=== PATIENT | female | born 1975 | race Two or more races ===

== ENCOUNTER 2023-02-08 17:38 | Inpatient (IN) | payer MEDICAID, OTHER ==
[~2023-02-08] VITALS: Ht 170.2 cm; Wt 185.0 kg
[2023-02-08 18:28] LABS: Albumin 2.6 g/dL (3.4-5.0); Calcium 8.2 mg/dL (8.5-10.1); Potassium 4.4 mmol/L (3.5-5.1)
[2023-02-08 18:30] LABS: BUN/Creatinine Ratio 12.3 (10.0-20.0); Bilirubin, Total 0.8 mg/dL (0.2-1.0)
[2023-02-08 19:00] LABS: Basophils # (auto) 0.1 10 ^3/uL (0-0.2); Mean Corpuscular Volume 80.8 fL (80.0-100.0); Nucleated Red Blood Cells % 0.1 %; White Blood Cell 20.1 10^3/uL (4.4-10.8)
[2023-02-08 19:02] LABS: Basophils % (auto) 0.3 % (0.0-2.0); Eosinophils # (auto) 0 10 ^3/uL (0-0.8); Eosinophils % (auto) 0.1 % (0.0-7.0); Hematocrit 32.8 % (36.0-46.0); Hemoglobin 11.1 g/dL (12.2-16.2); Lymphocytes % (auto) 4.8 % (10.0-50.0); Mean Corpuscular Hemoglobin 27.4 pg (28.0-32.0); Mean Corpuscular Hgb Conc. 33.8 g/dL (32.0-36.0); Monocytes # (auto) 1.4 10 ^3/uL (0-1.3); Monocytes % (auto) 6.8 % (0.0-12.0); Neutrophils # (auto) 17.7 10 ^3/uL (1.6-8.6); Red Blood Cells 4.06 10^6/uL (4.0-5.20); Red Cell Distribution Width 15.8 % (11.8-14.3)
[2023-02-08] MEDS ORDERED: PIPERACILLIN-TAZOB 3.375GM 100 ML IV ONE (19:15)
[2023-02-08] MEDS ORDERED: IPRATROPIUM BROM 0.5 MG/2.5ML INH SOL NEB ONE (19:15)
[2023-02-08] MEDS ORDERED: BUDESONIDE (INHALATION) 0.5 MG/2 ML NEB NEB ONE (19:15)
[2023-02-08] MEDS ORDERED: ALBUTEROL SULF 2.5 MG/0.5ML(0.5%) NEB SOLN NEB ONE (19:15)
[2023-02-08] MEDS ORDERED: dilTIAZem 25 MG/5 ML VIAL IV ONE (19:45)
[2023-02-08] MEDS ORDERED: ONDANSETRON HCL 4 MG/2 ML VIAL IV ONE (22:00)
[2023-02-08] MEDS ORDERED: IOHEXOL 350 MG/ML 100ML IJ ONE (22:24)
[2023-02-08] MEDS: ACETAMINOPHEN 325 MG TAB PO ONE ×2 (22:30→23:11)
[2023-02-08] MEDS ORDERED: DEXTROSE (50%) 50ML SYRG IV PRN (23:30)
[2023-02-08] MEDS ORDERED: MORPHINE SULFATE INJ 2 MG/ml SYRG IV PRN (23:30)
[2023-02-08] MEDS ORDERED: ONDANSETRON HCL 4 MG/2 ML VIAL IV PRN (23:30)
[2023-02-08] MEDS ORDERED: NITROGLYCERIN 0.4 MG SL TAB SL PRN (23:30)
[2023-02-08] MEDS ORDERED: DOCUSATE SOD 100 MG CAP PO PRN (23:30)
[2023-02-08] MEDS: METOCLOPRAMIDE HCL 5MG/ml INJ 2ml VIAL IV PRN (23:35)
[2023-02-08] MEDS ORDERED: FUROSEMIDE 40 MG/4 ML VIAL IV ONE (23:45)
[2023-02-09] MEDS: InsuLIN REG 1unit/0.01ml Soln (100units/ml) SC SCH ×5 (00:45→23:03)
[2023-02-09] MEDS ORDERED: AZITHROMYCIN 500MG/ 250ML 250 ML IV ONE (00:45)
[2023-02-09] MEDS ORDERED: InsuLIN REG 1unit/0.01ml Soln (100units/ml) ONE (00:56)
[2023-02-09] MEDS: ACETAMINOPHEN 325 MG TAB PO PRN (01:21)
[2023-02-09 01:22] VITALS: BP 121/67
[2023-02-09] MEDS: ALBUTEROL SULF 2.5 MG/0.5ML(0.5%) NEB SOLN NEB PRN (03:17)
[2023-02-09] MEDS: IPRATROPIUM BROM 0.5 MG/2.5ML INH SOL NEB PRN (03:17)
[2023-02-09 05:20] LABS: Potassium 4.1 mmol/L (3.5-5.1)
[2023-02-09 05:26] LABS: Albumin 2.5 g/dL (3.4-5.0); BUN/Creatinine Ratio 12.8 (10.0-20.0); Bilirubin, Total 0.9 mg/dL (0.2-1.0); Calcium 8.3 mg/dL (8.5-10.1); Total Protein 6.9 g/dL (6.4-8.2)
[2023-02-09 05:28] LABS: Basophils # (auto) 0.1 10 ^3/uL (0-0.2); Basophils % (auto) 0.6 % (0.0-2.0); Eosinophils # (auto) 0 10 ^3/uL (0-0.8); Hematocrit 31.2 % (36.0-46.0); Hemoglobin 10.6 g/dL (12.2-16.2); Lymphocytes # (auto) 1.3 10 ^3/uL (0.4-5.4); Lymphocytes % (auto) 5.7 % (10.0-50.0); Mean Corpuscular Hemoglobin 27.6 pg (28.0-32.0); Mean Corpuscular Hgb Conc. 33.9 g/dL (32.0-36.0); Mean Corpuscular Volume 81.3 fL (80.0-100.0); Monocytes # (auto) 1.5 10 ^3/uL (0-1.3); Monocytes % (auto) 6.3 % (0.0-12.0); Neutrophils # (auto) 20.3 10 ^3/uL (1.6-8.6); Neutrophils % (auto) 87.4 % (37.0-80.0); Red Blood Cells 3.84 10^6/uL (4.0-5.20); White Blood Cell 23.2 10^3/uL (4.4-10.8)
[2023-02-09] MEDS: SODIUM CHLOR 0.9% PF (SALINE LOCK) 10ML VIAL/SYR IV SCH ×3 (05:34→22:27)
[2023-02-09] MEDS ORDERED: methylPREDNISolone SOD SUCC 125 MG/2 ML VL IV SCH (06:00)
[2023-02-09 06:30] LABS: Urine Bacteria NONE SEEN /hpf (None Seen); Urine Blood 2+ /uL (Negative); Urine Specific Gravity 1.006 (1.001-1.035); Urine WBC 1 /hpf (0 - 5)
[2023-02-09] MEDS: ACCU-CHEK COMFORT CURVE STRIP VI SCH ×4 (06:39→22:27)
[2023-02-09] MEDS: LEVOTHYROXINE SODIUM 50 MCG TAB PO SCH (06:40)
[2023-02-09] MEDS: cefTRIAXone 1GM/50ML D5W 50 ML IV SCH (09:12)
[2023-02-09] MEDS: ASPirin 81 mg TAB PO SCH (09:22)
[2023-02-09] MEDS: FAMOTIDINE (10MG/ML) 2ML VL IV SCH ×2 (09:22→22:27)
[2023-02-09] MEDS: AZITHROMYCIN 500MG/ 250ML 250 ML IV SCH (09:23)
[2023-02-09] MEDS: FUROSEMIDE 40 MG/4 ML VIAL IV SCH (09:23)
[2023-02-09] MEDS ORDERED: ENOXAPARIN SOD 40 MG/0.4 ML SYRINGE SC SCH (10:00)
[2023-02-09] MEDS ORDERED: HEPARIN DRIP/D5W 100UNITS/ML 250 ML IV SCH (13:30)
[2023-02-09] MEDS ORDERED: HEPARIN SODIUM (PORCINE) 5000 UNITS/ML 1ML VIAL IV ONE (13:30)
[2023-02-09] MEDS: METOCLOPRAMIDE HCL 5MG/ml INJ 2ml VIAL IV PRN ×2 (13:50→20:27)
[2023-02-09 14:04] LABS: Basophils # (auto) 0.1 10 ^3/uL (0-0.2); Basophils % (auto) 0.4 % (0.0-2.0); Eosinophils # (auto) 0 10 ^3/uL (0-0.8); Eosinophils % (auto) 0.2 % (0.0-7.0); Hematocrit 30.8 % (36.0-46.0); Hemoglobin 10.3 g/dL (12.2-16.2); Lymphocytes # (auto) 1.1 10 ^3/uL (0.4-5.4); Lymphocytes % (auto) 5.4 % (10.0-50.0); Mean Corpuscular Hemoglobin 27.2 pg (28.0-32.0); Mean Corpuscular Hgb Conc. 33.5 g/dL (32.0-36.0); Mean Corpuscular Volume 81.3 fL (80.0-100.0); Monocytes # (auto) 1.3 10 ^3/uL (0-1.3); Monocytes % (auto) 6.5 % (0.0-12.0); Neutrophils # (auto) 18.1 10 ^3/uL (1.6-8.6); Neutrophils % (auto) 87.5 % (37.0-80.0); Nucleated Red Blood Cells % 0.1 %; Red Blood Cells 3.78 10^6/uL (4.0-5.20); Red Cell Distribution Width 15.9 % (11.8-14.3); White Blood Cell 20.7 10^3/uL (4.4-10.8)
[2023-02-09 14:17] LABS: INR 1.03 (0.9-1.15); Partial Thromboplastin Time 29.1 sec (24.6-33.4)
[2023-02-09] MEDS ORDERED: DULoxetine HCL 30 MG CAP PO ONE (14:30)
[2023-02-09] MEDS: methylPREDNISolone SOD SUCC 40 MG/ML VL IV SCH ×2 (14:57→22:27)
[2023-02-09] MEDS: HYDROcodone-ACET 5/325MG TAB PO PRN (20:27)
[2023-02-09 21:31] LABS: INR 1.01 (0.9-1.15)
[2023-02-09 22:00] VITALS: BP 124/62
[2023-02-09] MEDS: DULoxetine HCL 30 MG CAP PO SCH (22:26)
[2023-02-09] MEDS ORDERED: HEPARIN SODIUM (PORCINE) 5000 UNITS/ML 1ML VIAL IV NR (22:45)
[2023-02-09] MEDS ORDERED: ALPR0.255 PO (23:46)
[2023-02-09] MEDS ORDERED: LOSA100T58 PO (23:46)
[2023-02-09] MEDS ORDERED: LIDO5CRE14 EX (23:46)
[2023-02-09] MEDS ORDERED: CYCL-839 PO (23:46)
[2023-02-09] MEDS ORDERED: ADAL40IN2 SC (23:46)
[2023-02-09] MEDS ORDERED: ERGO1CAP12 PO (23:46)
[2023-02-09] MEDS ORDERED: TIOT17SP INH (23:46)
[2023-02-09] MEDS ORDERED: ONDA-188 PO (23:46)
[2023-02-09] MEDS ORDERED: TIZA-326 PO (23:46)
[2023-02-09] MEDS ORDERED: MOME1AER3 (23:46)
[2023-02-09] MEDS ORDERED: ALBUAER3 IN (23:46)
[2023-02-09] MEDS ORDERED: VITA-55 PO (23:46)
[2023-02-09] MEDS ORDERED: OXCA600T3 PO (23:46)
[2023-02-09] MEDS ORDERED: DULO1CAP6 PO (23:46)
[2023-02-09] MEDS ORDERED: LEVO150T10 PO (23:46)
[2023-02-09] MEDS ORDERED: CELE1CAP6 PO (23:46)
[2023-02-09] MEDS ORDERED: LOPE2CAP PO (23:46)
[2023-02-09] MEDS ORDERED: OMEP-448 PO (23:46)
[2023-02-09] MEDS ORDERED: ATOR20TA50 PO (23:46)
[2023-02-09] MEDS ORDERED: AMLO1TAB23 PO (23:46)
[2023-02-09] MEDS ORDERED: INSUINJ18 SC (23:46)
[2023-02-09] MEDS ORDERED: TOPI100T68 PO (23:46)
[2023-02-09] MEDS ORDERED: INSU100I28 IJ (23:46)
[2023-02-09] MEDS ORDERED: TIZA-142 PO (23:46)
[2023-02-10 05:00] VITALS: BP 112/57
[2023-02-10] MEDS: SODIUM CHLOR 0.9% PF (SALINE LOCK) 10ML VIAL/SYR IV SCH ×3 (05:07→21:28)
[2023-02-10] MEDS: HYDROcodone-ACET 5/325MG TAB PO PRN (05:08)
[2023-02-10] MEDS: methylPREDNISolone SOD SUCC 40 MG/ML VL IV SCH ×3 (05:08→21:27)
[2023-02-10 05:59] LABS: BUN/Creatinine Ratio 18.6 (10.0-20.0); Calcium 8.8 mg/dL (8.5-10.1); Magnesium 2.3 mg/dL (1.6-2.6); Potassium 4.3 mmol/L (3.5-5.1)
[2023-02-10] MEDS: LEVOTHYROXINE SODIUM 50 MCG TAB PO SCH (06:01)
[2023-02-10] MEDS: ACCU-CHEK COMFORT CURVE STRIP VI SCH ×4 (06:02→22:05)
[2023-02-10] MEDS: InsuLIN REG 1unit/0.01ml Soln (100units/ml) SC SCH ×4 (06:07→22:19)
[2023-02-10 06:14] LABS: Basophils # (auto) 0.1 10 ^3/uL (0-0.2); Basophils % (auto) 0.4 % (0.0-2.0); Eosinophils # (auto) 0 10 ^3/uL (0-0.8); Eosinophils % (auto) 0.1 % (0.0-7.0); Hematocrit 30.5 % (36.0-46.0); Hemoglobin 10.4 g/dL (12.2-16.2); Lymphocytes % (auto) 5.1 % (10.0-50.0); Mean Corpuscular Hemoglobin 27.9 pg (28.0-32.0); Mean Corpuscular Hgb Conc. 34.2 g/dL (32.0-36.0); Mean Corpuscular Volume 81.5 fL (80.0-100.0); Monocytes # (auto) 0.8 10 ^3/uL (0-1.3); Monocytes % (auto) 3.9 % (0.0-12.0); Neutrophils # (auto) 18.5 10 ^3/uL (1.6-8.6); Neutrophils % (auto) 90.5 % (37.0-80.0); Nucleated Red Blood Cells % 0.1 %; Red Blood Cells 3.74 10^6/uL (4.0-5.20); White Blood Cell 20.4 10^3/uL (4.4-10.8)
[2023-02-10 06:20] LABS: INR 0.98 (0.9-1.15); Partial Thromboplastin Time 28.8 sec (24.6-33.4)
[2023-02-10] MEDS ORDERED: HEPARIN SODIUM (PORCINE) 5000 UNITS/ML 1ML VIAL IV NR ×2 (06:30→22:00)
[2023-02-10] MEDS ORDERED: HEPARIN DRIP/D5W 100UNITS/ML 250 ML IV SCH (06:30)
[2023-02-10] MEDS ORDERED: HEPARIN SODIUM (PORCINE) 5000 UNITS/ML 1ML VIAL IV ONE ×2 (06:45→13:30)
[2023-02-10 09:33] VITALS: BP 123/54
[2023-02-10] MEDS ORDERED: OPTISON 3ml Vial for INJ IV ONE (10:03)
[2023-02-10] MEDS: cefTRIAXone 1GM/50ML D5W 50 ML IV SCH (10:43)
[2023-02-10] MEDS: FUROSEMIDE 40 MG/4 ML VIAL IV SCH (10:54)
[2023-02-10] MEDS: DULoxetine HCL 30 MG CAP PO SCH ×2 (10:57→21:28)
[2023-02-10] MEDS: FAMOTIDINE (10MG/ML) 2ML VL IV SCH ×2 (10:57→21:28)
[2023-02-10] MEDS: ASPirin 81 mg TAB PO SCH (10:57)
[2023-02-10] MEDS: AZITHROMYCIN 500MG/ 250ML 250 ML IV SCH (11:51)
[2023-02-10] MEDS: ALBUTEROL SULF 2.5 MG/0.5ML(0.5%) NEB SOLN NEB PRN (12:38)
[2023-02-10] MEDS: IPRATROPIUM BROM 0.5 MG/2.5ML INH SOL NEB PRN (12:38)
[2023-02-10 12:52] VITALS: BP 139/53
[2023-02-10 13:11] LABS: INR 0.97 (0.9-1.15); Partial Thromboplastin Time 24.6 sec (24.6-33.4)
[2023-02-10] MEDS ORDERED: ALPRAZolam 0.5 MG TAB PO PRN (13:15)
[2023-02-10] MEDS: HEPARIN DRIP/D5W 100UNITS/ML 250 ML IV SCH (14:24)
[2023-02-10 16:53] VITALS: BP 142/74
[2023-02-10] MEDS: ATORVASTATIN 20 MG TAB PO SCH (21:28)
[2023-02-10 21:38] LABS: INR 0.97 (0.9-1.15); Partial Thromboplastin Time < 20.0 sec (24.6-33.4)
[2023-02-10 22:00] VITALS: BP 144/67
[2023-02-11] VITALS (7 sets, daily range): BP systolic 118–139; BP diastolic 52–80
[2023-02-11] MEDS: HYDROcodone-ACET 5/325MG TAB PO PRN ×2 (00:57→11:29)
[2023-02-11] MEDS: HEPARIN DRIP/D5W 100UNITS/ML 250 ML IV SCH (02:57)
[2023-02-11] MEDS: SODIUM CHLOR 0.9% PF (SALINE LOCK) 10ML VIAL/SYR IV SCH ×3 (05:26→21:52)
[2023-02-11] MEDS: methylPREDNISolone SOD SUCC 40 MG/ML VL IV SCH ×3 (05:27→21:52)
[2023-02-11] MEDS: ACCU-CHEK COMFORT CURVE STRIP VI SCH ×4 (06:11→21:57)
[2023-02-11] MEDS: LEVOTHYROXINE SODIUM 50 MCG TAB PO SCH (06:11)
[2023-02-11] MEDS: InsuLIN REG 1unit/0.01ml Soln (100units/ml) SC SCH ×4 (06:18→21:59)
[2023-02-11 06:30] LABS: INR 0.98 (0.9-1.15); Partial Thromboplastin Time 34.4 sec (24.6-33.4)
[2023-02-11 06:35] LABS: Potassium 4.3 mmol/L (3.5-5.1)
[2023-02-11 06:37] LABS: Hematocrit 31.2 % (36.0-46.0); Hemoglobin 10.4 g/dL (12.2-16.2); Mean Corpuscular Hemoglobin 27.2 pg (28.0-32.0); Mean Corpuscular Hgb Conc. 33.2 g/dL (32.0-36.0); Mean Corpuscular Volume 81.9 fL (80.0-100.0); Red Blood Cells 3.81 10^6/uL (4.0-5.20); Red Cell Distribution Width 15.9 % (11.8-14.3); White Blood Cell 21.5 10^3/uL (4.4-10.8)
[2023-02-11 06:39] LABS: Basophils % (manual) 0 (0.0-2.0); Blast Cells 0; Eosinophils % (manual) 0 (0-7); Metamyelocytes % 0; Myelocytes % 0; Promyelocytes % 0; Reactive Lymphocytes 0
[2023-02-11] MEDS ORDERED: HEPARIN DRIP/D5W 100UNITS/ML 250 ML IV SCH (07:00)
[2023-02-11] MEDS ORDERED: HEPARIN SODIUM (PORCINE) 5000 UNITS/ML 1ML VIAL IV ONE (07:15)
[2023-02-11 07:29] LABS: Band Neutrophils % (manual) 7; Lymphocytes % (manual) 8 (10.0-50.0); Monocytes % (manual) 6 (0-12)
[2023-02-11] MEDS ORDERED: INSULIN 70/30 1unit/0.01ml Susp (100units/ml) SC ONE ×2 (08:45→09:12)
[2023-02-11] MEDS: cefTRIAXone 1GM/50ML D5W 50 ML IV SCH (09:34)
[2023-02-11] MEDS: DULoxetine HCL 30 MG CAP PO SCH ×2 (09:34→21:52)
[2023-02-11] MEDS: ASPirin 81 mg TAB PO SCH (09:34)
[2023-02-11] MEDS: FAMOTIDINE (10MG/ML) 2ML VL IV SCH (09:34)
[2023-02-11] MEDS: FUROSEMIDE 40 MG/4 ML VIAL IV SCH (09:35)
[2023-02-11] MEDS: CLOPIDOGREL BISULFATE 75 MG TAB PO SCH (09:45)
[2023-02-11] MEDS: AZITHROMYCIN 500MG/ 250ML 250 ML IV SCH (11:10)
[2023-02-11] MEDS: ATORVASTATIN 20 MG TAB PO SCH (21:52)
[2023-02-11] MEDS ORDERED: INSULIN 70/30 1unit/0.01ml Susp (100units/ml) SC SCH ×2 (22:00)
[2023-02-11] MEDS: ACETAMINOPHEN 325 MG TAB PO PRN (22:06)
[2023-02-12 05:00] VITALS: BP 124/64
[2023-02-12] MEDS: methylPREDNISolone SOD SUCC 40 MG/ML VL IV SCH ×3 (05:42→21:36)
[2023-02-12] MEDS: LEVOTHYROXINE SODIUM 50 MCG TAB PO SCH (05:42)
[2023-02-12] MEDS: SODIUM CHLOR 0.9% PF (SALINE LOCK) 10ML VIAL/SYR IV SCH ×3 (05:42→21:36)
[2023-02-12] MEDS: ACCU-CHEK COMFORT CURVE STRIP VI SCH ×4 (06:16→21:39)
[2023-02-12] MEDS: InsuLIN REG 1unit/0.01ml Soln (100units/ml) SC SCH ×4 (06:18→21:44)
[2023-02-12 09:00] VITALS: BP 137/67
[2023-02-12] MEDS: cefTRIAXone 1GM/50ML D5W 50 ML IV SCH (09:40)
[2023-02-12] MEDS: CLOPIDOGREL BISULFATE 75 MG TAB PO SCH (09:40)
[2023-02-12] MEDS: ASPirin 81 mg TAB PO SCH (09:40)
[2023-02-12] MEDS: DULoxetine HCL 30 MG CAP PO SCH ×2 (09:40→21:36)
[2023-02-12] MEDS: FUROSEMIDE 40 MG/4 ML VIAL IV SCH (09:41)
[2023-02-12] MEDS ORDERED: INSULIN 70/30 1unit/0.01ml Susp (100units/ml) SC ONE (12:00)
[2023-02-12] MEDS: AZITHROMYCIN 500MG/ 250ML 250 ML IV SCH (12:02)
[2023-02-12 13:00] VITALS: BP 132/72
[2023-02-12 16:45] VITALS: BP 125/62
[2023-02-12] MEDS: ATORVASTATIN 20 MG TAB PO SCH (21:36)
[2023-02-12] MEDS: INSULIN 70/30 1unit/0.01ml Susp (100units/ml) SC SCH (21:40)
[2023-02-12 22:00] VITALS: BP 133/64
[2023-02-13] MEDS ORDERED: DEXTROSE (50%) 50ML SYRG IV PRN (00:30)
[2023-02-13 05:00] VITALS: BP 132/59
[2023-02-13] MEDS: SODIUM CHLOR 0.9% PF (SALINE LOCK) 10ML VIAL/SYR IV SCH ×3 (05:40→22:22)
[2023-02-13] MEDS: LEVOTHYROXINE SODIUM 50 MCG TAB PO SCH (05:41)
[2023-02-13] MEDS: methylPREDNISolone SOD SUCC 40 MG/ML VL IV SCH ×2 (05:41→22:15)
[2023-02-13] MEDS: ACCU-CHEK COMFORT CURVE STRIP VI SCH ×3 (05:42→17:42)
[2023-02-13] MEDS: InsuLIN REG 1unit/0.01ml Soln (100units/ml) SC SCH ×4 (05:48→23:59)
[2023-02-13 06:31] LABS: Hematocrit 34.9 % (36.0-46.0); Hemoglobin 11.7 g/dL (12.2-16.2); Mean Corpuscular Hemoglobin 27.1 pg (28.0-32.0); Mean Corpuscular Hgb Conc. 33.4 g/dL (32.0-36.0); Red Blood Cells 4.32 10^6/uL (4.0-5.20); Red Cell Distribution Width 15.5 % (11.8-14.3); White Blood Cell 19.3 10^3/uL (4.4-10.8)
[2023-02-13 06:41] LABS: Band Neutrophils % (manual) 0; Basophils % (manual) 0 (0.0-2.0); Blast Cells 0; Eosinophils % (manual) 0 (0-7); Metamyelocytes % 0; Myelocytes % 0; Promyelocytes % 0; Reactive Lymphocytes 0
[2023-02-13 06:42] LABS: BUN/Creatinine Ratio 27.5 (10.0-20.0); Calcium 8.8 mg/dL (8.5-10.1); Magnesium 2.5 mg/dL (1.6-2.6); Potassium 4.1 mmol/L (3.5-5.1)
[2023-02-13 09:00] VITALS: BP 146/87
[2023-02-13 09:02] LABS: Lymphocytes % (manual) 24 (10.0-50.0); Monocytes % (manual) 9 (0-12)
[2023-02-13] MEDS: cefTRIAXone 1GM/50ML D5W 50 ML IV SCH (11:07)
[2023-02-13] MEDS: CLOPIDOGREL BISULFATE 75 MG TAB PO SCH (11:08)
[2023-02-13] MEDS: DULoxetine HCL 30 MG CAP PO SCH ×2 (11:08→22:15)
[2023-02-13] MEDS: FUROSEMIDE 40 MG/4 ML VIAL IV SCH (11:08)
[2023-02-13] MEDS: ASPirin 81 mg TAB PO SCH (11:08)
[2023-02-13] MEDS: AZITHROMYCIN 500MG/ 250ML 250 ML IV SCH (12:11)
[2023-02-13] MEDS: INSULIN 70/30 1unit/0.01ml Susp (100units/ml) SC SCH ×2 (12:17→22:14)
[2023-02-13 13:00] VITALS: BP 148/91
[2023-02-13 16:51] VITALS: BP 138/55
[2023-02-13 20:00] VITALS: BP 130/69
[2023-02-13 22:00] VITALS: BP 143/53
[2023-02-13] MEDS: ATORVASTATIN 20 MG TAB PO SCH (22:15)
[2023-02-13] MEDS: ACETAMINOPHEN 325 MG TAB PO PRN (22:22)
[2023-02-13] MEDS: IPRATROPIUM BROM 0.5 MG/2.5ML INH SOL NEB PRN (22:34)
[2023-02-13] MEDS: ALBUTEROL SULF 2.5 MG/0.5ML(0.5%) NEB SOLN NEB PRN (22:34)
[2023-02-14 05:00] VITALS: BP 135/82
[2023-02-14] MEDS: LEVOTHYROXINE SODIUM 50 MCG TAB PO SCH (06:47)
[2023-02-14] MEDS: SODIUM CHLOR 0.9% PF (SALINE LOCK) 10ML VIAL/SYR IV SCH ×3 (06:48→21:47)
[2023-02-14] MEDS: ACCU-CHEK COMFORT CURVE STRIP VI SCH ×4 (06:48→18:00)
[2023-02-14] MEDS: InsuLIN REG 1unit/0.01ml Soln (100units/ml) SC SCH ×3 (06:51→18:50)
[2023-02-14 07:30] VITALS: BP 128/69
[2023-02-14 09:00] VITALS: BP 128/69
[2023-02-14] MEDS: DULoxetine HCL 30 MG CAP PO SCH ×2 (10:08→21:41)
[2023-02-14] MEDS: methylPREDNISolone SOD SUCC 40 MG/ML VL IV SCH ×2 (10:08→21:41)
[2023-02-14] MEDS: ASPirin 81 mg TAB PO SCH (10:08)
[2023-02-14] MEDS: CLOPIDOGREL BISULFATE 75 MG TAB PO SCH (10:08)
[2023-02-14] MEDS: cefTRIAXone 1GM/50ML D5W 50 ML IV SCH (10:08)
[2023-02-14] MEDS: FUROSEMIDE 40 MG/4 ML VIAL IV SCH (10:09)
[2023-02-14] MEDS: ACETAMINOPHEN 325 MG TAB PO PRN (10:32)
[2023-02-14] MEDS: INSULIN 70/30 1unit/0.01ml Susp (100units/ml) SC SCH ×2 (10:32→22:05)
[2023-02-14] MEDS: AZITHROMYCIN 500MG/ 250ML 250 ML IV SCH (10:40)
[2023-02-14 13:00] VITALS: BP 145/77
[2023-02-14] MEDS: METOCLOPRAMIDE HCL 5MG/ml INJ 2ml VIAL IV PRN ×2 (15:18→21:42)
[2023-02-14 16:55] VITALS: BP 139/78
[2023-02-14 20:00] VITALS: BP 135/84
[2023-02-14] MEDS: ATORVASTATIN 20 MG TAB PO SCH (21:41)
[2023-02-15 02:46] VITALS: BP 139/78
[2023-02-15 05:00] VITALS: BP 115/75
[2023-02-15] MEDS: InsuLIN REG 1unit/0.01ml Soln (100units/ml) SC SCH ×3 (06:00→13:35)
[2023-02-15] MEDS: ACCU-CHEK COMFORT CURVE STRIP VI SCH ×3 (06:13→13:31)
[2023-02-15] MEDS: LEVOTHYROXINE SODIUM 50 MCG TAB PO SCH (06:14)
[2023-02-15] MEDS: SODIUM CHLOR 0.9% PF (SALINE LOCK) 10ML VIAL/SYR IV SCH ×2 (06:14→14:00)
[2023-02-15 06:35] LABS: BUN/Creatinine Ratio 25.6 (10.0-20.0); Calcium 8.7 mg/dL (8.5-10.1); Potassium 3.9 mmol/L (3.5-5.1)
[2023-02-15] MEDS: METOCLOPRAMIDE HCL 5MG/ml INJ 2ml VIAL IV PRN (09:41)
[2023-02-15] MEDS ORDERED: METH4PAK PO (10:13)
[2023-02-15] MEDS ORDERED: LEVO500T91 PO (10:13)
[2023-02-15] MEDS: DULoxetine HCL 30 MG CAP PO SCH (11:10)
[2023-02-15] MEDS: ASPirin 81 mg TAB PO SCH (11:10)
[2023-02-15] MEDS: cefTRIAXone 1GM/50ML D5W 50 ML IV SCH (11:10)
[2023-02-15] MEDS: CLOPIDOGREL BISULFATE 75 MG TAB PO SCH (11:10)
[2023-02-15] MEDS: methylPREDNISolone SOD SUCC 40 MG/ML VL IV SCH (11:10)
[2023-02-15] MEDS: FUROSEMIDE 40 MG/4 ML VIAL IV SCH (11:12)
[2023-02-15] MEDS: INSULIN 70/30 1unit/0.01ml Susp (100units/ml) SC SCH (11:13)
[2023-02-15] MEDS: AZITHROMYCIN 500MG/ 250ML 250 ML IV SCH (11:30)
[2023-02-15 12:21] VITALS: BP 126/55
[2023-02-15 13:00] VITALS: BP 133/68
[2023-02-15 17:00] VITALS: BP 148/76
== END 2023-02-15 16:42 | disposition home or self-care (01) | DRG 139 ==
LOC: EDBD 17:38 → ER 17:38 → TELE 23:22 → TELE-CENTR 02-09 18:31
PROVIDERS: ADMIT Nurse Practitioner Family; ATTEND Internal Medicine Geriatric Medicine
DX: J18.9 Pneumonia, unspecified organism (principal); J96.01 Acute respiratory failure with hypoxia; I21.4 Non-ST elevation (NSTEMI) myocardial infarction; E87.1 Hypo-osmolality and hyponatremia; Z68.44 Body mass index [BMI] 60.0-69.9, adult; E11.65 Type 2 diabetes mellitus with hyperglycemia; D64.9 Anemia, unspecified; I11.0 Hypertensive heart disease with heart failure; I50.9 Heart failure, unspecified; R26.81 Unsteadiness on feet; E66.01 Morbid (severe) obesity due to excess calories; F41.9 Anxiety disorder, unspecified; E03.9 Hypothyroidism, unspecified; D72.829 Elevated white blood cell count, unspecified; F31.9 Bipolar disorder, unspecified; J45.909 Unspecified asthma, uncomplicated; Z88.8 Allergy status to other drugs, medicaments and biological substances; Z91.040 Latex allergy status; Z88.2 Allergy status to sulfonamides
CPT/HCPCS: 36415; 36600; 71045; 80048; 80053; 81001; 82805; 82962; 83605; 83735; 83880; 84443; 84484; 85007; 85025; 85027; 85379; 85610; 85730; 87040; 87070; 87205; 93005; 93306; 93970; 94640; 96365; 96375; 97110; 97116; G0378; J0696; J1815; J2405; J2543; J3490; Q9956